=== PATIENT | female | born 1960 | race Two or more races ===

== ENCOUNTER 2017-02-28 12:53 | Inpatient (IN) | payer OTHER ==
[~2017-02-28] VITALS: Ht 152.4 cm; Wt 78.0 kg
[2017-02-28] MEDS ORDERED: [UNRECOGNIZED DRUG - REMARK] (13:04)
--- NOTE | 2017-02-28 13:17 | NUR ---
PT IS IN ROOM #1A. DR SAEZ EVALUATED THE PT.
[2017-02-28 13:37] LABS: BASOPHILS # (AUTO) 0.1 K/uL (0.0-8.0); BASOPHILS % (AUTO) 1.3 % (0.0-2.0); EOSINOPHILS # (AUTO) 0.5 K/uL (0.0-0.7); EOSINOPHILS % (AUTO) 5.4 % (0.0-7.0); HEMATOCRIT 39.8 % (31.2-41.9); HEMOGLOBIN 13.7 g/dL (10.9-14.3); LYMPHOCYTES # (AUTO) 3.3 K/uL (20.0-40.0); LYMPHOCYTES % (AUTO) 32.8 % (20.5-51.5); MEAN CORPUSCULAR HEMOGLOBIN 29.7 uug (24.7-32.8); MEAN CORPUSCULAR HGB CONC 35 g/dL (32.3-35.6); MEAN CORPUSCULAR VOLUME 86.1 fL (75.5-95.3); MONOCYTES # (AUTO) 0.8 K/uL (2.0-10.0); MONOCYTES % (AUTO) 7.8 % (0.0-11.0); NEUTROPHILS # (AUTO) 5.3 K/uL (1.8-8.9); NEUTROPHILS % (AUTO) 52.7 % (38.5-71.5); PLATELET COUNT (AUTO) 263 K/uL (179-408); RED BLOOD CELL COUNT(AUTO) 4.62 MIL/uL (3.63-4.92)
[2017-02-28 13:59] LABS: CREATININE 0.8 mg/dL (0.6-1.3); POTASSIUM 3.6 mmol/L (3.5-5.1)
[2017-02-28 14:11] LABS: BILIRUBIN,TOTAL 0.3 mg/dL (0.2-1.0); TOTAL PROTEIN, SERUM 6.8 g/dL (6.4-8.2)
[2017-02-28 14:17] LABS: *BILIRUBIN,URIN NEGATIVE (NEGATIVE); *BLOOD, URINE NEGATIVE (NEGATIVE); *CLARITY,URINE CLEAR (CLEAR); *COLOR,URINE STRAW (YELLOW); *KETONES,URINE NEGATIVE (NEGATIVE); *PROTEIN,URINE NEGATIVE (NEGATIVE); *UROBILINOGEN,URINE 0.2 E.U./dl (NORMAL); LEUKOCYTE ESTERASE ,URINE NEGATIVE (NEGATIVE); NITRITE, URINE NEGATIVE (NEGATIVE); UGLUCOSE NEGATIVE (NEGATIVE)
[2017-02-28 14:30] LABS: WBC,URINE NONE SEEN /HPF (0-3)
[2017-02-28 14:31] LABS: SQUAMOUS EPITHELIAL CELL,UR FEW /HPF (NONE SEEN)
--- NOTE | 2017-02-28 16:06 | NUR ---
REPORT WAS GIVEN TO LASTING FLOORWORKER. PT WAS TRANSFERED TO ROOM #203.
[2017-02-28 17:04] VITALS: BP 137/75
--- NOTE | 2017-02-28 17:19 | NUR ---
PT ALERT AND ORIENTED X4, HAS PRESSURE ON RIGHT SIDE CHEST, DOES NOT RADIATE TO ANY OTHER LOCATION. ALSO STATES PRESSURE ON TOP OF HEAD. ORIENTED TO ROOM AND ADVISED TO USE CALL LIGHT BEFORE GETTING OUT OF BED, DUE TO DIZZINESS WHILE WALKING. ADMISSION PROTOCOL FOLLOWED, WILL NOTIFY DR OF PT ARRIVAL, CALL LIGHT IN REACH. NIHSS SCALE COMPLETED
--- NOTE | 2017-02-28 17:58 | NUR ---
MATEUSZ AWARE OF PT ARRIVAL, ORDERS RECEIVED WILL FOLLOW THROUGH
--- NOTE | 2017-02-28 18:39 | NUR ---
PT SLEEPING IN BED, AWAKENS TO NAME, IN NO ACUTE DISTRESS. CALL LIGHT IN REACH, ALL SAFETY AND COMFORT MEASURES ATTENDED TOO
[2017-02-28 20:00] VITALS: BP 130/72
[2017-02-28] MEDS ORDERED: IV NS 1000 ML 1,000 ML IV PRN (21:32)
[2017-02-28] MEDS ORDERED: ENOXAPARIN SODIUM 40 MG/0.4 ML DISP.SYRIN SQ SCH (21:45)
[2017-02-28] MEDS ORDERED: ONDANSETRON 4 MG/2 ML VIAL IV PRN (21:45)
[2017-02-28] MEDS ORDERED: MORPHINE SULFATE 2 MG/1 ML DISP.SYRIN IV PRN (21:45)
[2017-02-28] MEDS ORDERED: ACETAMINOPHEN 325 MG TABLET PO PRN (21:45)
[2017-02-28] MEDS ORDERED: ZOLPIDEM 5 MG TABLET PO PRN (21:45)
[2017-02-28] MEDS ORDERED: ENOXAPARIN SODIUM 40 MG/0.4 ML DISP.SYRIN SQ ONE (22:11)
[2017-02-28] MEDS ORDERED: ACETAMINOPHEN 325 MG TABLET ONE (22:12)
--- NOTE | 2017-02-28 22:30 | NUR ---
PT C/O OF HEADACHE, TYLENOL ADMINISTERED. WILL REASSESS.
[2017-03-01] VITALS: BP 130/68
--- NOTE | 2017-03-01 00:30 | NUR ---
PT SLEEPING, IN NO ACUTE DISTRESS. PT IS ON TELE, SIN[facility] AVELINA.
[2017-03-01 04:00] VITALS: BP 127/65
--- NOTE | 2017-03-01 06:23 | NUR ---
PT SLEPT INTERMITTENTLY. PT STILL C/O OF SLIGHT RIGHT CHEST/ARM PAIN/PRESSURE 07/18. MEDS GIVEN ORDERED. IVF RUNNING, NO INFILTRATION NOTED. SAFETY MEASURES IN PLACE, CALL LIGHT WITHIN REACH. WILL CONTINUE TO MONITOR.
[2017-03-01 07:23] LABS: BILIRUBIN,TOTAL 0.4 mg/dL (0.2-1.0); CREATININE 0.7 mg/dL (0.6-1.3); MAGNESIUM 2.1 mg/dL (1.8-2.4); PHOSPHOROUS 3.2 mg/dL (2.5-4.9); POTASSIUM 3.7 mmol/L (3.5-5.1); TOTAL PROTEIN, SERUM 6.5 g/dL (6.4-8.2)
--- NOTE | 2017-03-01 07:28 | NUR ---
PT RECEIVED SLEEPING IN BED, AWAKENS TO NAME, IN NO ACUTE DISTRESS. CALL LIGHT WITH IN REACH, ALL SAFETY AND COMFORT MEASURES ATTENDED TOO
[2017-03-01 07:34] LABS: THYROID STIMULATING HORMONE 6.076 mIU/mL (0.358-3.740)
[2017-03-01 08:08] LABS: BASOPHILS # (AUTO) 0.1 K/uL (0.0-8.0); BASOPHILS % (AUTO) 1.9 % (0.0-2.0); EOSINOPHILS # (AUTO) 0.5 K/uL (0.0-0.7); HEMATOCRIT 41.5 % (31.2-41.9); HEMOGLOBIN 14.2 g/dL (10.9-14.3); LYMPHOCYTES # (AUTO) 2.5 K/uL (20.0-40.0); MEAN CORPUSCULAR HEMOGLOBIN 29.9 uug (24.7-32.8); MEAN CORPUSCULAR HGB CONC 34 g/dL (32.3-35.6); MEAN CORPUSCULAR VOLUME 87.3 fL (75.5-95.3); MONOCYTES # (AUTO) 0.6 K/uL (2.0-10.0); MONOCYTES % (AUTO) 7.4 % (0.0-11.0); NEUTROPHILS # (AUTO) 4.1 K/uL (1.8-8.9); NEUTROPHILS % (AUTO) 52.7 % (38.5-71.5); PLATELET COUNT (AUTO) 250 K/uL (179-408); RED BLOOD CELL COUNT(AUTO) 4.75 MIL/uL (3.63-4.92); WHITE BLOOD COUNT (AUTO) 7.7 K/uL (3.8-11.8)
[2017-03-01] MEDS ORDERED: VALSARTAN 80 MG TABLET PO SCH (09:00)
[2017-03-01] MEDS ORDERED: AMLODIPINE 2.5 MG TABLET PO SCH (09:00)
[2017-03-01] MEDS ORDERED: ASPIRIN EC 81 MG TABLET.DR PO SCH (09:00)
[2017-03-01 11:04] VITALS: BP 124/68
[2017-03-01] MEDS ORDERED: ASPI-618 PO (12:36)
[2017-03-01] MEDS ORDERED: ATOR10TA PO (12:36)
[2017-03-01] MEDS ORDERED: VALS80TA2 PO (12:36)
[2017-03-01] MEDS ORDERED: AMLO2.5T PO (12:36)
--- NOTE | 2017-03-01 12:57 | NUR ---
D/C ORDERS RECEIVED NOTED AND CARRIED OUT,D/C HEPLOCK PER MD ORDERS.D/C INSTRUCTIONS AND EDUCATIONS GIVEN TO THE PT,PT VERBALIZED UNDERSTANDING ALL THE INSTRUCTIONS.PT LEFT THE FACILITY VIA PRIVATE CAR IN STABLE CONDITION.
[2017-03-01] MEDS ORDERED: ATORVASTATIN 10 MG TABLET PO SCH (21:00)
[2017-03-01] MEDS ORDERED: ENOXAPARIN SODIUM 40 MG/0.4 ML DISP.SYRIN SQ SCH (21:00)
== END 2017-03-01 13:03 | disposition home or self-care (01) | DRG 313 ==
LOC: ER 12:53 → TELE 16:04 → MED 03-01 12:36
PROVIDERS: ADMIT Nurse Practitioner Acute Care; ATTEND Nurse Practitioner Acute Care
DX: R07.89 Other chest pain (principal); E66.01 Morbid (severe) obesity due to excess calories; I10 Essential (primary) hypertension; K21.9 Gastro-esophageal reflux disease without esophagitis; Z86.73 Personal history of transient ischemic attack (TIA), and cerebral infarction without residual deficits; Z68.33 Body mass index [BMI] 33.0-33.9, adult; R73.9 Hyperglycemia, unspecified; Z71.3 Dietary counseling and surveillance
CPT/HCPCS: 36415; 70030-TC; 70450; 71010; 83690; 83735; 84100; 84443; 85025; 85610; 93005; 93307; A4663; J1650; J7030

== ENCOUNTER 2018-12-16 08:47 | Inpatient (IN) | payer OTHER ==
[~2018-12-16] VITALS: Ht 165.1 cm; Wt 72.6 kg
[~2018-12-16 08:47] MED LIST: AMLO2.5T4 PO; ASPI-618 PO; ATOR10TA PO; VALS80TA2 PO
[2018-12-16] MEDS ORDERED: IV NORMAL SALINE 1000 ML BAG IV ONE (09:00)
[2018-12-16 09:17] LABS: BASOPHILS # (AUTO) 0.1 K/uL (0.0-8.0); BASOPHILS % (AUTO) 1.2 % (0.0-2.0); EOSINOPHILS # (AUTO) 0.5 K/uL (0.0-0.7); EOSINOPHILS % (AUTO) 4.9 % (0.0-7.0); HEMATOCRIT 42.9 % (31.2-41.9); HEMOGLOBIN 14.7 g/dL (10.9-14.3); LYMPHOCYTES # (AUTO) 2.5 K/uL (20.0-40.0); LYMPHOCYTES % (AUTO) 25.9 % (20.5-51.5); MEAN CORPUSCULAR HEMOGLOBIN 29.9 uug (24.7-32.8); MEAN CORPUSCULAR HGB CONC 34 g/dL (32.3-35.6); MEAN CORPUSCULAR VOLUME 87.2 fL (75.5-95.3); MONOCYTES # (AUTO) 0.7 K/uL (2.0-10.0); MONOCYTES % (AUTO) 7.7 % (0.0-11.0); NEUTROPHILS # (AUTO) 5.8 K/uL (1.8-8.9); NEUTROPHILS % (AUTO) 60.3 % (38.5-71.5); PLATELET COUNT (AUTO) 276 K/uL (179-408); RED BLOOD CELL COUNT(AUTO) 4.93 MIL/uL (3.63-4.92); WHITE BLOOD COUNT (AUTO) 9.6 K/uL (3.8-11.8)
[2018-12-16 09:22] LABS: MAGNESIUM 2.2 mg/dL (1.8-2.4)
[2018-12-16 09:24] LABS: CARBON DIOXIDE 24 mmol/L (21-32); CHLORIDE 107 mmol/L (98-107); CREATININE 0.7 mg/dL (0.6-1.3); GLUCOSE 101 mg/dL (74-106); UREA NITROGEN, BLOOD 17 mg/dL (7-18)
[2018-12-16 09:29] LABS: ALANINE AMINOTRANSFERASE 19 U/L (14-59); ALKALINE PHOSPHATASE 76 U/L (50-136); ASPARTATE AMINOTRANSFERASE 8 U/L (15-37); BILIRUBIN,DIRECT 0.1 mg/dL (0.0-0.2); BILIRUBIN,TOTAL 0.4 mg/dL (0.2-1.0); TOTAL PROTEIN, SERUM 7.1 g/dL (6.4-8.2)
[2018-12-16] MEDS ORDERED: ONDANSETRON 4 MG/2 ML VIAL IV ONE ×2 (09:30→11:00)
[2018-12-16] MEDS ORDERED: IBUPROFEN 600 MG TABLET ONE (09:30)
[2018-12-16] MEDS ORDERED: ONDANSETRON 4 MG/2 ML VIAL ONE ×2 (09:30→10:55)
[2018-12-16] MEDS ORDERED: IV NS 1000 ML 1,000 ML IV ONE (09:30)
[2018-12-16] MEDS ORDERED: IBUPROFEN 600 MG TABLET PO ONE (09:30)
[2018-12-16 09:40] LABS: ETHANOL < 3 MG/DL (0-0); THYROID STIMULATING HORMONE 2.201 mIU/mL (0.358-3.740)
[2018-12-16 10:04] LABS: *BILIRUBIN,URIN NEGATIVE (NEGATIVE); *BLOOD, URINE NEGATIVE (NEGATIVE); *CLARITY,URINE CLEAR (CLEAR); *COLOR,URINE YELLOW (YELLOW); *KETONES,URINE NEGATIVE (NEGATIVE); *UROBILINOGEN,URINE 0.2 E.U./dl (NORMAL); LEUKOCYTE ESTERASE ,URINE NEGATIVE (NEGATIVE); NITRITE, URINE NEGATIVE (NEGATIVE); UGLUCOSE NEGATIVE (NEGATIVE)
[2018-12-16 10:08] LABS: *AMPHETAMINE, URINE NEGATIVE (NEGATIVE); *BARBITURATE, URINE NEGATIVE (NEGATIVE); *CANNABINOID, URINE NEGATIVE (NEGATIVE); *COCCAINE, URINE NEGATIVE (NEGATIVE); *OPIATE, URINE NEGATIVE (NEGATIVE); *PHENCYCLIDINE SCREEN,URINE NEGATIVE (NEGATIVE)
[2018-12-16] MEDS ORDERED: MORPHINE SULFATE 2 MG/1 ML DISP.SYRIN IV ONE ×2 (10:30→12:15)
[2018-12-16] MEDS ORDERED: CEFTRIAXONE 2 G in IV DEXTROSE 5% 100 ML IV ONE (10:30)
[2018-12-16] MEDS ORDERED: CEFTRIAXONE 1 G VIAL ONE (10:35)
[2018-12-16] MEDS ORDERED: MORPHINE SULFATE 2 MG/1 ML DISP.SYRIN ONE ×2 (10:36→12:31)
[2018-12-16] MEDS ORDERED: MAG HYDROX/AL HYDROX/SIMETH 30 ML LIQUID UDC PO ONE (12:00)
[2018-12-16] MEDS ORDERED: LIDOCAINE VISCUS 2% 15 ML UDC PO ONE (12:00)
[2018-12-16] MEDS ORDERED: DICYCLOMINE HCL LIQ 10 MG/5 ML UDC PO ONE (12:00)
[2018-12-16] MEDS ORDERED: DICYCLOMINE HCL LIQ 10 MG/5 ML UDC ONE (12:01)
--- NOTE | 2018-12-16 12:13 | NUR ---
report given to Mumtaz MARTINEZ
--- NOTE | 2018-12-16 12:58 | NUR ---
Pt. admitted to Tele, room 314 , under care of Dr. Giron Belongs List completed
--- NOTE | 2018-12-16 13:10 | NUR ---
RECEIVED PT FROM [facility] VIA [facility]. PT ADMITED TO TELEMETRY UNIT WITH SINUS AVELINA HIGH 50'S. PT A+O X3. PT DENIES PAIN AT THIS TIME. PT FEELS GASSY AND BLOATED. VS 150/80, 57, 18, 97.5, 97% ON RA. DR CHILD AWARE OF ADMISSION. MED RECONCILIATION COMPLETED. WILL CONTINUE TO MONITOR. WILL CONTINUE WITH PLAN OF CARE.
[2018-12-16 13:20] VITALS: BP 150/80
[2018-12-16] MEDS ORDERED: ONDANSETRON 4 MG/2 ML VIAL IV PRN (13:45)
[2018-12-16] MEDS ORDERED: PANTOPRAZOLE SODIUM 40 MG VIAL IV SCH (13:45)
[2018-12-16] MEDS ORDERED: ZOLPIDEM 5 MG TABLET PO PRN (13:45)
[2018-12-16] MEDS ORDERED: HYDROCODONE/APAP 5-325MG TABLET PO PRN (13:45)
[2018-12-16] MEDS ORDERED: Z GUARD REMEDY PASTE 57 GM TUBE TOP PRN (13:45)
[2018-12-16] MEDS ORDERED: MAGNESIUM HYDROXIDE 30 ML LIQUID UDC PO PRN (13:45)
[2018-12-16 15:44] VITALS: BP 148/80
[2018-12-16] MEDS: IV NS 1000 ML 1,000 ML IV PRN (15:52)
--- NOTE | 2018-12-16 17:30 | NUR ---
PT REFUSED TO EAT DUE TO HEARTBURN AND GAS. WILL CONTACT MD FOR ADVISE IN MED ADMINISTRATION. NO SOB OR LABORED BREATHING NOTED. PT SITTING IN CHAIR LEANING FORWARD IT HELPS HER GET RID OF GAS EFFECTIVELY. WILL CONTINUE TO MONITOR.
--- NOTE | 2018-12-16 18:00 | NUR ---
DR CHILD ORDERED MEDICATION FOR PT'S HEARTBURN AND GAS. ADMINISTERED AT 1800. NO DISTRESS NOTED. NO SOB NOTED. WILL CONTINUE TO MONITOR PT. WILL GIVE REPORT TO INCOMING SHIFT ACCORDINGLY.
[2018-12-16] MEDS: SUCRALFATE 1 G/10 ML LIQUID UDC PO SCH ×2 (18:26→20:29)
[2018-12-16 20:00] VITALS: BP 131/83
[2018-12-16] MEDS: ACETAMINOPHEN 325 MG TABLET PO PRN (20:32)
--- NOTE | 2018-12-16 21:29 | NUR ---
Pt. sitting in chair as she states this helps with gerd and belching. IV in L AC 20 gauge intact patent running fluids ordered. Pt. denies any pain. Pt. states she is in slight discomfort from belching but feels a lot better from carafate given. Safety measures in place. Call light within reach. Will continue to monitor pt.
[2018-12-16 22:34] LABS: THYROID STIMULATING HORMONE 0.013 mIU/mL (0.358-3.740)
[2018-12-17] VITALS: BP 136/77
[2018-12-17 04:00] VITALS: BP 98/71
[2018-12-17] MEDS: IV NS 1000 ML 1,000 ML IV PRN (05:26)
[2018-12-17 06:02] VITALS: BP 134/83
--- NOTE | 2018-12-17 06:20 | NUR ---
Pt. slept throughout night. Sleeping pill given per request of pt. Tylenol given per request of pt. for headache. Pt. states she feels a lot better than yesterday. Pt. denies any belching or gerd like symptoms. IV in L AC 20 gauge intact patent running fluids. Safety measures in place. Call light within reach. Will continue to monitor pt. Will endorse to AM nurse.
[2018-12-17] MEDS: SUCRALFATE 1 G/10 ML LIQUID UDC PO SCH (06:33)
[2018-12-17 06:59] LABS: BILIRUBIN,TOTAL 0.3 mg/dL (0.2-1.0); CREATININE 0.7 mg/dL (0.6-1.3); MAGNESIUM 2.1 mg/dL (1.8-2.4); PHOSPHOROUS 2.8 mg/dL (2.5-4.9); TOTAL PROTEIN, SERUM 6.5 g/dL (6.4-8.2)
[2018-12-17] MEDS ORDERED: PANTOPRAZOLE SODIUM 40 MG TABLET.DR PO SCH (07:00)
[2018-12-17 07:03] LABS: BASOPHILS # (AUTO) 0.1 K/uL (0.0-8.0); BASOPHILS % (AUTO) 1.3 % (0.0-2.0); EOSINOPHILS # (AUTO) 0.4 K/uL (0.0-0.7); EOSINOPHILS % (AUTO) 6.2 % (0.0-7.0); HEMATOCRIT 41.5 % (31.2-41.9); HEMOGLOBIN 14.1 g/dL (10.9-14.3); LYMPHOCYTES # (AUTO) 1.8 K/uL (20.0-40.0); LYMPHOCYTES % (AUTO) 24.6 % (20.5-51.5); MEAN CORPUSCULAR HEMOGLOBIN 29.9 uug (24.7-32.8); MEAN CORPUSCULAR HGB CONC 34 g/dL (32.3-35.6); MONOCYTES # (AUTO) 0.5 K/uL (2.0-10.0); MONOCYTES % (AUTO) 6.3 % (0.0-11.0); NEUTROPHILS # (AUTO) 4.5 K/uL (1.8-8.9); NEUTROPHILS % (AUTO) 61.6 % (38.5-71.5); PLATELET COUNT (AUTO) 257 K/uL (179-408); RED BLOOD CELL COUNT(AUTO) 4.71 MIL/uL (3.63-4.92); WHITE BLOOD COUNT (AUTO) 7.3 K/uL (3.8-11.8)
--- NOTE | 2018-12-17 07:10 | NUR ---
Received Patient in Bed, awake and verbally Responsive. Able to make needs known. No signs of Distress noted. No complain of headache at this time. All needs attended and met. will continue to monitor.
[2018-12-17] MEDS ORDERED: ASPIRIN EC 81 MG TABLET.DR PO SCH (09:00)
--- NOTE | 2018-12-17 09:30 | NUR ---
Seen by Dr. Wallis with New Order to Discharge Home today, Spoke with Patient she said she will be picked up by her Daughter at 11:30AM. All needs attended and met.
[2018-12-17] MEDS: ACETAMINOPHEN 325 MG TABLET PO PRN (09:40)
[2018-12-17 11:21] VITALS: BP 140/77
--- NOTE | 2018-12-17 11:50 | NUR ---
Patient Alert and verbally responsive. Able to make needs known. Pain medication given for headache, with relief after 30 minutes, Discharged Instructions reviewed with Patient and verbalized understanding, IV access, wrist Band and residential monitor removed, All belongings was sent with patient. Patient was picked up by Daughter in stable condition.
[2018-12-17 18:06] LABS: *ANTI-SCLERODERMA-70 AB <0.2 AI (0.0-0.9); *SJOGREN'S ANTI-SS-A <0.2 AI (0.0-0.9); *SJOGREN'S ANTI-SS-B <0.2 AI (0.0-0.9); *SMITH ANTIBODIES <0.2 AI (0.0-0.9); ANTI-DNA(DS) AB, QN <1 IU/mL (0-9)
== END 2018-12-17 12:00 | disposition home or self-care (01) | DRG 866 ==
LOC: ER 08:47 → TELE3 12:38
PROVIDERS: ADMIT Nurse Practitioner Acute Care; ATTEND Nurse Practitioner Acute Care
DX: B34.9 Viral infection, unspecified (principal); E86.0 Dehydration; R51 Headache; F17.210 Nicotine dependence, cigarettes, uncomplicated; I10 Essential (primary) hypertension; B00.1 Herpesviral vesicular dermatitis; Z86.73 Personal history of transient ischemic attack (TIA), and cerebral infarction without residual deficits; Z73.3 Stress, not elsewhere classified; F41.9 Anxiety disorder, unspecified; I44.0 Atrioventricular block, first degree; K21.9 Gastro-esophageal reflux disease without esophagitis; Z79.82 Long term (current) use of aspirin; Z90.710 Acquired absence of both cervix and uterus
CPT/HCPCS: 36415; 70030-TC; 70450; 71045; 80307; 83550; 83605; 83735; 84100; 84443; 85025; 85651; 85730; 86038; 87040; 87086; 93005; 93307; 93880; A4663; G0378; G0480; J0696; J2270; J2405; J3490; J7030

== ENCOUNTER 2025-03-02 19:52 | Emergency (ER) | payer OTHER ==
[~2025-03-02] VITALS: Ht 165.1 cm; Wt 72.6 kg
[~2025-03-02 19:52] MED LIST changes: -AMLO2.5T4 PO; -ATOR10TA PO; -VALS80TA2 PO
[2025-03-02 20:10] VITALS: BP 152/90
[2025-03-02] MEDS ORDERED: ONDANSETRON 4 MG/2 ML VIAL ONE (21:28)
[2025-03-02] MEDS ORDERED: HYDROMORPHONE 1 MG/1 ML DISP.SYRIN ONE (21:28)
[2025-03-02] MEDS ORDERED: CYCLOBENZAPRINE HCL 10 MG TABLET ONE (21:28)
[2025-03-02] MEDS: HYDROMORPHONE 1 MG/1 ML DISP.SYRIN IV ONE (21:33)
[2025-03-02] MEDS: ONDANSETRON 4 MG/2 ML VIAL IV ONE (21:34)
[2025-03-02] MEDS: CYCLOBENZAPRINE HCL 10 MG TABLET PO ONE (21:34)
[2025-03-02 21:35] LABS: PLATELET COUNT (AUTO) 267 K/uL (179-408); RED BLOOD CELL COUNT(AUTO) 4.89 MIL/uL (3.63-4.92); RED CELL DISTRIBUTION WIDTH 14.8 % (12.3-17.7); WHITE BLOOD COUNT (AUTO) 20.4 K/uL (3.8-11.8)
[2025-03-02 21:43] LABS: CREATININE 0.6 mg/dL (0.6-1.3); SODIUM SERUM 138 mmol/L (136-145); UREA NITROGEN, BLOOD 18 mg/dL (7-18)
[2025-03-02 21:49] LABS: ASPARTATE AMINOTRANSFERASE 14 U/L (15-37); TOTAL PROTEIN, SERUM 7.3 g/dL (6.4-8.2)
[2025-03-02] MEDS ORDERED: CYCL10TA9 PO (23:55)
[2025-03-02] MEDS ORDERED: HYDR-3980 PO (23:55)
[2025-03-02] MEDS ORDERED: ONDA4TAB11 PO (23:55)
[2025-03-03] MEDS ORDERED: HYDROMORPHONE 1 MG/1 ML DISP.SYRIN ONE (00:05)
[2025-03-03] MEDS: HYDROMORPHONE 1 MG/1 ML DISP.SYRIN IV ONE (00:07)
[2025-03-03 00:26] VITALS: BP 142/83; O2SAT 97
== END 2025-03-03 00:27 | disposition home or self-care (01) ==
LOC: ER 20:31
DX: M79.601 Pain in right arm (principal); M54.50 Low back pain, unspecified; F17.210 Nicotine dependence, cigarettes, uncomplicated; M53.3 Sacrococcygeal disorders, not elsewhere classified; Z79.82 Long term (current) use of aspirin; R06.02 Shortness of breath
CPT/HCPCS: 99285; 96374; 93971; 71045; 96375; 80076; 80048; 83880; 85025; 85379; 84484 ×2; 36415; 72072; 72100; 73030; 93005; 96376; J2405; J1171 ×2; A4606; A4663